=== PATIENT | male | born 1960 | race Caucasian/White ===

== ENCOUNTER 2020-07-05 02:50 | Observation (INO) | payer BC ==
[~2020-07-05] VITALS: Ht 188 cm; Wt 88.6 kg
[2020-07-05 03:05] LABS: BASO # 0.1 (0.0-0.2); BASO % 1.2 % (0.0-2.0); EOS # 0.4 (0.0-0.7); EOS % 3.7 % (0-4.0); GRAN # 6.2 (1.4-6.5); GRAN % 52.3 % (42.2-75.2); HEMATOCRIT 43.7 % (42.0-52.0); HEMOGLOBIN 15.2 g/dl (13.5-18.0); LYMPH # 4.1 (1.2-3.4); LYMPH % 34.4 % (20.0-51.0); MEAN CELL VOLUME 92 fl (80.0-100.0); MEAN CORPUSCULAR HEMOGLOBIN 32 pg (27.0-31.0); MEAN CORPUSCULAR HGB CONC 35 g/dl (33.0-37.0); MEAN PLATELET VOLUME 9.2 fl (7.4-10.4); MONO % 8.1 % (1.7-9.3); PLATELET COUNT 206 K/mm3 (130-400); RED BLOOD COUNT 4.76 M/mm3 (4.20-5.60); REDCELL DISTRIBUTION WIDTH-CV 12.2 % (11.5-14.5)
[2020-07-05] MEDS ORDERED: PRINZIDE 12.5 M1 TA1 PO (03:16)
[2020-07-05 03:19] LABS: ALANINE AMINOTRANSFERASE 24 U/L (4-49); ALBUMIN 4.1 gm/dL (3.5-5.0); ALKALINE PHOSPHATASE 93 U/L (50-136); ANION GAP 9 mmol/L (7-16); AST,SGOT 31 U/L (15-37); BILIRUBIN,TOTAL 0.6 mg/dL (0.0-1.0); BLOOD UREA NITROGEN 18 mg/dL (9-20); CALCIUM 9.4 mg/dL (8.4-10.2); CARBON DIOXIDE 28 mmol/L (22-30); CHLORIDE 99 mmol/L (98-107); CREATININE, serum 1.12 (0.66-1.25); GLUCOSE 114 mg/dL (74-106); POTASSIUM 3.4 mmol/L (3.4-5.0); SODIUM 136 mmol/L (137-145); TOTAL PROTEIN 6.5 gm/dL (6.4-8.2)
[2020-07-05 03:31] LABS: TROPONIN-I < 0.012 ng/mL (0.000-0.035)
[2020-07-05 06:33] LABS: CHOLESTEROL 164 mg/dL (120-200); HDL CHOLESTEROL 41 mg/dL; LDL CHOLESTEROL 78 mg/dL; TRIGLYCERIDE 223 mg/dL
[2020-07-05 06:45] LABS: TROPONIN-I 3 HR POST INITIAL < 0.012 ng/mL (0.000-0.034)
[2020-07-05 08:32] VITALS: BP 127/77; PULSE 66; TEMP 95.8
[2020-07-05 11:48] VITALS: BP 121/70; PULSE 77; TEMP 99.6
[2020-07-05 16:16] VITALS: BP 126/74; PULSE 66; TEMP 98.9
[2020-07-05 20:00] VITALS: BP 127/78; PULSE 71; TEMP 98.7
--- NOTE | 2020-07-05 20:00 | NUR ---
Patient's called for update. Updated patient's on labs pending, current medications: antibiotics, steroids, etc. Spoke to for about 15 minutes and answered all questions and concerns voiced at that time. Would like to be called during rounds in the morning. Note put on door to call her during rounds as requested. Stated she was unable to get in touch with and requested that he call her.
--- NOTE | 2020-07-05 20:10 | NUR ---
Patient assessed at this time. Alert and oriented x 4, and able to make needs known. Denies having pain and discomfort at this time. Peripheral INTs to left and right AC flushed. Site without redness, warmth, swelling, and pain. Denies having SOB and dyspnea. LS CTA. Respirations even and unlabored. On room air. HRR. Telemetry in place. Capillary refill less than 3 seconds. Non-tenting skin turgor. BSAx4. Abdomen soft and non-tender. No edema. Voices no questions, needs, or concerns at this time. Resting in bed with call light within reach. Notified patient that had been updated, and would like him to call her.
[2020-07-06 00:19] VITALS: BP 126/76; PULSE 63; TEMP 98.1
[2020-07-06 03:11] VITALS: BP 124/83; PULSE 65; TEMP 98
--- NOTE | 2020-07-06 05:32 | NUR ---
Patient's PCR Covid test came back negative. Patient no longer in contact/droplet isolation. Updated patient on results. Patient denied having pain and discomfort this shift. Voices no questions, needs, or concerns at this time. Resting in bed with call light within reach.
[2020-07-06 08:02] VITALS: BP 140/79; PULSE 67; TEMP 97.7
--- NOTE | 2020-07-06 09:16 | NUR ---
Pt awake and alert upon entry, in bed. No C/O pain at this time. Shift assessment completye, left Pt call light in reach.
[2020-07-06] MEDS ORDERED: MONODOX100 PO (10:02)
[2020-07-06] MEDS ORDERED: TYLENOL 325MG325 MG PO (10:02)
[2020-07-06] MEDS ORDERED: RT Albuterol HFA MDI IH (10:02)
[2020-07-06] MEDS ORDERED: PEPCID 20MG TAB20 MG PO (10:03)
[2020-07-06] MEDS ORDERED: PREDNISONE10 MG PO (10:04)
--- NOTE | 2020-07-06 11:37 | NUR ---
Pt discharged to home, discussed discharge packet, solicited questions. Escorted Pt to entrance, Pt left with spouse via private transportation.
[2020-07-06 20:04] LABS: C-ANCA 6 U/mL (0-99)
[2020-07-07 13:45] LABS: ANGIOTENSIN CONVERTING ENZYME 44 U/L (16 - 85)
== END 2020-07-06 11:30 | disposition home or self-care (01) ==
LOC: COL.ER 02:50 → PEDS 05:34
PROVIDERS: Emergency Medicine; Internal Medicine Pulmonary Disease; ADMIT Student in an Organized Health Care Education/Training Program
DX: R07.89 Other chest pain (principal); I11.9 Hypertensive heart disease without heart failure; I43 Cardiomyopathy in diseases classified elsewhere; Z20.822 Contact with and (suspected) exposure to COVID-19; Z85.46 Personal history of malignant neoplasm of prostate; Z92.3 Personal history of irradiation; Z82.49 Family history of ischemic heart disease and other diseases of the circulatory system; Z79.899 Other long term (current) drug therapy; Z79.82 Long term (current) use of aspirin
CPT/HCPCS: G0378; J0696; J1650; J2920; J7030; Q9967

== ENCOUNTER → 2020-08-28 | Outpatient (CLI) | payer BC ==
[~2020-08-28] MED LIST: MONODOX100 PO; PEPCID 20MG TAB20 MG PO; PREDNISONE10 MG PO; PRINZIDE 12.5 M1 TA1 PO; RT Albuterol HFA MDI IH; TYLENOL 325MG325 MG PO
== END ==
LOC: COL.RAD 12:26
DX: J84.9 Interstitial pulmonary disease, unspecified (principal); R91.8 Other nonspecific abnormal finding of lung field

== ENCOUNTER → 2023-09-23 | Outpatient (RCR) | payer BC | END | disposition home or self-care (01) | LOC: COL.CR | DX: D86.0 Sarcoidosis of lung (principal) | CPT/HCPCS: G0239 ==

== ENCOUNTER 2023-10-07 10:58 | Outpatient (RCR) | payer BC | END 2023-10-24 | disposition home or self-care (01) | LOC: COL.CR | DX: D86.0 Sarcoidosis of lung (principal) | CPT/HCPCS: G0237; G0239 ==